=== PATIENT | female | born 1960 | race Caucasian/White ===

== ENCOUNTER 2023-04-04 10:30 | Emergency (ER) | payer OTHER ==
[~2023-04-04] VITALS: Ht 172.7 cm; Wt 65.8 kg
[2023-04-04 10:30] VITALS: BP_SYST 148; PULSE 82; RESP 18; TEMP 99; O2SAT 99
[2023-04-04] MEDS ORDERED: IBUP-1969 PO (11:21)
== END 2023-04-04 11:41 | disposition home or self-care (01) ==
LOC: SED 10:30
DX: S90.31XA Contusion of right foot, initial encounter (principal); Z79.899 Other long term (current) drug therapy; X50.1XXA Overexertion from prolonged static or awkward postures, initial encounter; Y93.89 Activity, other specified; Y92.89 Other specified places as the place of occurrence of the external cause; Y99.8 Other external cause status
CPT/HCPCS: 99284